=== PATIENT | female | born 1930 | race African-American/Black ===

== ENCOUNTER 2017-04-17 05:41 | Inpatient (IN) | payer MEDICARE, MEDICAID ==
[~2017-04-17] VITALS: Ht 157.5 cm; Wt 54.9 kg
[2017-04-17] MEDS ORDERED: ALBUTEROL (0.083%) 2.5MG/3ML NEB HHN STA (06:28)
[2017-04-17 07:07] LABS: BG BASE EXCESS 1.7 mmol/L (-2.0-2.0); BG DEOXYHEMOGLOBIN 5.2 % (0.0-5.0); BG FRACTION INSPIRED OXYGEN 28; BG HCO3 ACT 25.6 mmol/L (22.0-26.0); BG METHEMOGLOBIN 0.3 % (0.0-1.5); BG OXYGEN SATURATION 94.7 % (92.0-98.5); BG OXYHEMOGLOBIN 93.5 % (94.0-97.0); BG PCO2 37.7 mmHg (35.0-45.0); BG PH 7.449 (7.350-7.450); BG SAMPLE SITE RIGHT RADIAL; BG TOTAL HEMOGLOBIN 14.4 g/dL (12.0-18.0); BG VENT MODE NASAL CANNULA
[2017-04-17 07:13] LABS: BASOPHILS % 0.8 % (0.0-2.0); EOSINOPHILS % 0.9 % (0.0-5.0); HEMATOCRIT. 43.2 % (36.0-48.0); HEMOGLOBIN. 14.3 g/dL (12.0-16.0); LYMPHOCYTES % 34.5 % (20.0-50.0); MEAN CORPUSCULAR HEMOGLOBIN 30.5 pg (28.0-32.0); MEAN CORPUSCULAR VOLUME 91.8 fL (81.0-99.0); MEAN PLATELET VOLUME 9.7 fl (7.4-10.4); MONOCYTES % 8.5 % (2.0-8.0); NEUTROPHILS % 55.3 % (40.0-76.0); PLATELET 133 x1000/uL (130-400); RED CELL DISTRIBUTION WIDTH 15.5 % (11.6-14.6)
[2017-04-17 07:17] LABS: INR 1.2; PROTHROMBIN TIME 12.3 sec (9.4-11.6)
[2017-04-17 07:26] LABS: CARBON DIOXIDE 29 mEq/L (21-32); CHLORIDE 106 mEq/L (98-107); TROPONIN I 0.04 ng/mL (0.00-0.04)
[2017-04-17] MEDS ORDERED: LEVOFLOXACIN 750MG PREMIX 150 ML IV ONE (07:30)
[2017-04-17 10:30] VITALS: BP 141/79
[2017-04-17] MEDS ORDERED: FURO20TA4 PO (11:01)
[2017-04-17] MEDS ORDERED: ONDA4SOL2 PO (11:01)
[2017-04-17] MEDS ORDERED: LISI10TA5 PO (11:01)
[2017-04-17] MEDS ORDERED: MIRT15TA6 PO (11:01)
[2017-04-17] MEDS ORDERED: CARV25TA47 PO (11:01)
[2017-04-17] MEDS ORDERED: HYDR-523 PO (11:01)
[2017-04-17] MEDS ORDERED: ATOR80TA PO (11:01)
[2017-04-17] MEDS ORDERED: HYDROCODONE/ACETAMINOPHEN 5/325MG TABLET PO PRN (11:30)
[2017-04-17] MEDS ORDERED: ONDANSETRON HCL 4MG TABLET PO PRN (11:45)
[2017-04-17 12:00] VITALS: BP 135/76
[2017-04-17 16:00] VITALS: BP 149/82
[2017-04-17 16:02] LABS: CREATINE KINASE MB FRACTION 0.9 ng/mL (0.5-3.6); TROPONIN I 0.04 ng/mL (0.00-0.04)
[2017-04-17] MEDS: FUROSEMIDE 40MG/4ML VIAL IVP SCH (19:11)
[2017-04-17] MEDS ORDERED: POTASSIUM CHLORIDE 10MEQ TABLET SR PO SCH (19:15)
[2017-04-17] MEDS ORDERED: LEVOFLOXACIN 500MG PREMIX 100 ML IV SCH (19:15)
[2017-04-17 20:00] VITALS: BP 131/74
[2017-04-17] MEDS: ALBUTEROL (0.083%) 2.5MG/3ML NEB HHN SCH (20:45)
[2017-04-17] MEDS: CARVEDILOL 25MG TABLET PO SCH (20:53)
[2017-04-17] MEDS ORDERED: MIRTAZAPINE 15MG TABLET PO SCH (21:00)
[2017-04-17] MEDS ORDERED: ATORVASTATIN CALCIUM 40MG TABLET PO SCH (21:00)
[2017-04-18] VITALS: BP 109/61
[2017-04-18] MEDS ORDERED: ALBUTEROL (0.083%) 2.5MG/3ML NEB HHN SCH
[2017-04-18] MEDS: ALBUTEROL (0.083%) 2.5MG/3ML NEB HHN SCH ×4 (00:06→12:45)
[2017-04-18 00:34] LABS: CREATINE KINASE MB FRACTION 1.2 ng/mL (0.5-3.6); TROPONIN I 0.05 ng/mL (0.00-0.04)
[2017-04-18 04:00] VITALS: BP 117/72
[2017-04-18 07:34] LABS: BASOPHILS % 0.4 % (0.0-2.0); EOSINOPHILS % 0.4 % (0.0-5.0); HEMATOCRIT. 39.1 % (36.0-48.0); HEMOGLOBIN. 13.1 g/dL (12.0-16.0); LYMPHOCYTES % 44.9 % (20.0-50.0); MEAN CORPUSCULAR HEMOGLOBIN 30.6 pg (28.0-32.0); MEAN CORPUSCULAR VOLUME 91.2 fL (81.0-99.0); MEAN PLATELET VOLUME 10.2 fl (7.4-10.4); MONOCYTES % 7.6 % (2.0-8.0); NEUTROPHILS % 46.7 % (40.0-76.0); PLATELET 118 x1000/uL (130-400); RED BLOOD CELL COUNT 4.29 mill/uL (4.2-5.4); RED CELL DISTRIBUTION WIDTH 15.5 % (11.6-14.6)
[2017-04-18 08:00] VITALS: BP 139/68
[2017-04-18] MEDS ORDERED: LEVOFLOXACIN 250MG PREMIX 50 ML IV SCH (08:00)
[2017-04-18 08:19] LABS: CARBON DIOXIDE 31 mEq/L (21-32); CHLORIDE 104 mEq/L (98-107); CREATINE KINASE 21 IU/L (26-192); LDL CHOLESTEROL 53 mg/dL (5-100)
[2017-04-18 08:29] LABS: CREATINE KINASE MB FRACTION 0.9 ng/mL (0.5-3.6); HDL CHOLESTEROL 49 mg/dL (40-59); TROPONIN I 0.04 ng/mL (0.00-0.04)
[2017-04-18] MEDS: CARVEDILOL 25MG TABLET PO SCH (08:32)
[2017-04-18] MEDS: FUROSEMIDE 40MG/4ML VIAL IVP SCH (08:33)
[2017-04-18] MEDS ORDERED: ENOXAPARIN 40MG/0.4ML SYR SUBCUT SCH (09:00)
[2017-04-18] MEDS ORDERED: FUROSEMIDE 20MG TABLET PO SCH (09:00)
[2017-04-18] MEDS ORDERED: LISINOPRIL 10MG TABLET PO SCH (09:00)
[2017-04-18 12:00] VITALS: BP 110/59
[2017-04-18] MEDS ORDERED: POTASSIUM CHLORIDE 10MEQ TABLET SR PO NR (15:15)
[2017-04-18 15:28] VITALS: BP 135/75
== END 2017-04-18 16:00 | disposition home or self-care (01) | DRG 291 ==
LOC: ER 05:59 → 5WST 08:10 → ENRESERV 08:30
PROVIDERS: ADMIT Internal Medicine; ATTEND Internal Medicine
DX: I11.0 Hypertensive heart disease with heart failure (principal); J18.9 Pneumonia, unspecified organism; I25.5 Ischemic cardiomyopathy; E78.5 Hyperlipidemia, unspecified; I25.10 Atherosclerotic heart disease of native coronary artery without angina pectoris; I50.9 Heart failure, unspecified; J45.909 Unspecified asthma, uncomplicated; Z86.73 Personal history of transient ischemic attack (TIA), and cerebral infarction without residual deficits; Z95.1 Presence of aortocoronary bypass graft; Z79.899 Other long term (current) drug therapy
CPT/HCPCS: 36415; 36600; 71010; 80053; 80061; 82375; 82550; 82553; 82805; 83880; 84443; 84484; 85025; 85610; 93005; 93306; 93970; 94640; 96365; 97161; 97166; 99285; J1650; J1940; J1956; J7050; J7611

== ENCOUNTER → 2018-02-27 | Outpatient (CLI) | payer MEDICARE, MEDICAID ==
[~2018-02-27] MED LIST: ATOR80TA PO; CARV25TA47 PO; FURO20TA4 PO; HYDR-523 PO; LISI10TA5 PO; MIRT15TA6 PO; ONDA4SOL2 PO
== END | disposition home or self-care (01) ==
LOC: CARD 09:41
PROVIDERS: ATTEND Psychiatry & Neurology Neurology
DX: F03.90 Unspecified dementia, unspecified severity, without behavioral disturbance, psychotic disturbance, mood disturbance, and anxiety (principal)